=== PATIENT | male | born 1985 | race Caucasian/White ===

== ENCOUNTER 2021-08-02 10:09 | Outpatient (REF) | payer OTHER, SELFPAY ==
[2021-08-02 11:17] LABS: COVID-19 Test Negative (Negative)
== END 2021-08-02 10:10 | disposition home or self-care (01) ==
LOC: HO.LAB 10:09
PROVIDERS: Visit Provider Internal Medicine
DX: Z20.822 Contact with and (suspected) exposure to COVID-19 (principal)
CPT/HCPCS: 87635; C9803

== ENCOUNTER 2022-08-20 16:44 | Emergency (ER) | payer OTHER, SELFPAY ==
[2022-08-20 17:14] VITALS: BP 137/96; PULSE 110; RESP 20; TEMP 36.8; O2SAT 98; BMI 34.8
--- NOTE | 2022-08-20 17:30 | ED_ITS ---
HPI - General Adult General Chief complaint: General Medical Stated complaint: shoulder neck pain Time Seen by Provider: 08/20/22 17:29 Source: patient Mode of arrival: ambulatory Limitations: no limitations History of Present Illness HPI narrative: 37 yo male healthy here with atraumatic neck pain since Saturday. Now pain radiating to back and left shoulder. No known injury or trauma. No weakness, numbness, tingling of the UE. NO fever,s chills. 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 over a work station Related Data Previous Rx's Medication Instructions Recorded cyclobenzaprine 10 mg tablet 10 mg PO TID PRN muscle spasm #15 08/20/22 tabs naproxen 500 mg tablet 500 mg PO BID PRN pain #30 tabs 08/20/22 prednisone 20 mg tablet 40 mg PO DAILY #10 tabs 08/20/22 Allergies Allergy/AdvReac Type Severity Reaction Status Date / Time ENVIRONMENTAL Allergy Unknown RESP Uncoded 04/07/20 15:44 SYMPTOMS SEASONAL ALLERGIES Allergy Unknown RESP Uncoded 04/07/20 15:44 SYMPTOMS Review of Systems Review of Systems: Yes all other systems are reviewed and are negative Constitutional: Constitutional: Reports no additional constitutional complaints, Denies body ache(s), Denies chills, Denies fever(s), Denies headache(s) and Denies weakness Eyes: Eyes: Reports no additional eye complaints and Denies change in vision ENT: Reports system reviewed and no additional complaints, except as documented, Denies dizziness, Denies headache(s), Denies nasal congestion, Denies nasal discharge and Reports neck pain Cardiovascular: Cardiovascular: Reports no additional cardiovascular complaints, Denies chest pain, Denies leg edema and Denies dyspnea Respiratory: Respiratory: Reports no additional respiratory complaints, Denies cough and Denies dyspnea Gastrointestinal: Gastrointestinal: Reports no additional gastrointestinal complaints, Denies abdominal pain, Denies diarrhea, Denies nausea and Denies vomiting Genitourinary: Genitourinary: Denies urinary incontinence Musculoskeletal: Musculoskeletal: Reports no additional musculoskeletal complaints, Reports back pain, Denies arthralgias, Denies joint swelling, Reports neck pain, Denies numbness, Reports radiating pain into limb and Denies tingling Integumentary/Breasts: Skin/Breast: Reports system reviewed and no additional complaints, except as docu and Denies rash Neurologic: Reports system reviewed and no additional complaints, except as documented, Denies dizziness, Denies headache(s), Denies numbness, Denies tingling and Denies weakness PMFSH Past Medical History Attestation statement: The following information was validated with the patient. Source: old records reviewed and nursing notes reviewed Social History Social History Advance Directives: No Advance Directives Information Provided: No Physical Exam ED Vital Signs: Vital Signs - 24 hr 08/20/22 17:14 Temperature 98.3 F Pulse Rate 110 H Respiratory Rate 20 Blood Pressure 137/96 H Pulse Oximetry 98 Oxygen Delivery Method Room Air BMI result Body Mass Index 34.8 Const General: cooperative, healthy appearing, comfortable and no acute distress Orientation/consciousness: patient oriented x3 Limitations: no limitations HENMT Head: Yes normal to inspection Ears: hearing grossly normal bilaterally Eyes General: appearance normal, both eyes and all related structures Pupils: Equal, round and reactive pupils present Neck Other: Positive Spurling's test-pain with compression Pain is relieved with shoulder abduction No midline tenderness, step-offs or deformities Full range of motion Neck: Yes normal visual inspection, Yes no lymphadenopathy and Yes no meningeal signs Chest Chest palpation & inspection: normal inspection of the chest Resp Effort & Inspection: normal respiratory effort Auscultation: clear to auscultation bilaterally Cardio Rate: regular rate Rhythm: regular rhythm Peripheral pulses: Peripheral pulses 2+ throughout GI Inspection: Yes normal to inspection Palpation (GI): Soft to palpation and nontender General: Yes no CVA tenderness Back/Spine/Pelvis Back: no CVA tenderness Thoracic/Lumbar Spine: thoracic and lumbar spine normal to inspection Skin General skin exam: no rashes or lesions noted Neuro General: patient oriented x3, moves all extremities and no meningeal signs Cranial nerves: Yes CN's II-XII intact bilaterally, Yes Equal, round and reactive pupils present, Yes Bilaterally intact EOM present, Yes Nystagmus not present, Yes Normal facial strength present and Yes Midline tongue present Cognition (Neuro): normal cognition Gait exam (Neuro): Normal gait present Motor exam (neuro): 5/5 motor strength present throughout Sensory Exam: Normal double simultaneous stimulation for sensation Deep tendon reflexes (DTR's): Right triceps reflex intensity grade: 2+, Left tri ceps reflex intensity grade: 2+, Rt Biceps (C5, C6): 2+, Left biceps reflex intensity grade: 2+, Right brachioradialis reflex intensity grade: 2+ and Left brachioradialis reflex intensity grade: 2+ Medical Decision Making Medical Decision Making MDM Narrative: 37-year-old male here with atraumatic neck pain for a week now with radiation of pain into the shoulder and into the back with + Spurling's test and improvement in pain with shoulder abduction most consistent with cervical radiculopathy. No red flag symptoms or neurological deficits. No history of trauma to suggest imaging. Patient will be given prednisone, muscle relaxants and NSAIDs with recommendations to follow-up with primary care outpatient Differential Diagnosis Differential Diagnoses: The differential diagnosis associated with the presentation includes cervical radiclopathy Low concern for epidural abscess with no history of IV drug abuse, immunocompromised state, HIV, fever or neurological findings Low concern for cord compression with normal neurological exam Low concern for fracture with no reports of trauma Discharge Plan Discharge Clinical Impression: Cervical radiculopathy Patient Disposition: Home, Self-Care Instructions: Cervical Radiculopathy (ED) Additional Instructions: Heat to the area, gentle stretching Establish a PCP Prescriptions: New cyclobenzaprine 10 mg tablet 10 mg PO TID PRN (Reason: muscle spasm) Qty: 15 0RF prednisone 20 mg tablet 40 mg PO DAILY Qty: 10 0RF naproxen 500 mg tablet 500 mg PO BID PRN (Reason: pain) Qty: 30 0RF Referrals: Physician,Unknown J [Primary Care Provider] - Stand Alone Forms: Work/School Release Interventions: ED Discharge Assessment Last Done: 08/20/22 17:38
--- NOTE | 2022-08-20 17:32 | PC.NURSE ---
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 plan for dc
== END 2022-08-20 17:41 | disposition home or self-care (01) ==
LOC: HO.ED 17:39
PROVIDERS: Emergency Provider Emergency Medicine Emergency Medical Services
DX: M54.12 Radiculopathy, cervical region (principal); Z79.899 Other long term (current) drug therapy
CPT/HCPCS: 99282; 99283

== ENCOUNTER 2024-05-12 05:48 | Emergency (ER) | payer OTHER, SELFPAY ==
--- NOTE | ~2024-05-12 | XR_ITS ---
EXAMINATION: XR CHEST 2 VIEW CLINICAL INFORMATION: Left upper back pain COMPARISON: 11/10/2019 TECHNIQUE: PA and lateral views of the chest obtained. FINDINGS: The lungs are clear. There are no pleural effusions. The cardiomediastinal silhouette is normal. XR/XR chest 2V IMPRESSION: No acute cardiopulmonary disease. Electronically signed by: Imtiaz Cox MD 05/12/2024 09:33 AM EDT
[2024-05-12 06:04] VITALS: BP 133/86; PULSE 89; RESP 22; TEMP 36.6; O2SAT 95; BMI 41.8
[2024-05-12 06:49] VITALS: BP 134/98; PULSE 92; RESP 12; TEMP 36.8; O2SAT 94
--- NOTE | 2024-05-12 07:21 | ED.BACK ---
HPI - Back Pain/Injury General Chief Complaint: Back Pain/Injury Stated Complaint: back pain Time Seen by Provider: 05/12/24 07:20 Source: patient Mode of arrival: ambulatory Limitations: no limitations History of Present Illness ED Provider: Dioni Robins PA-C HPI Narrative: 38 y/o male with history of morbid obesity, history of cervical radiculopathy in the past who presents to the ER for evaluation of left upper back pain that radiates occasionally down his left arm to his pinky finger for the last 5-6 days. He states the pain is worse with movement of his head and LUE. He does repetitive movements and some lifting with his job. He denies associated headache, LUE weakness . He has been coughing a lot and has post nasal drip. cough worse when laying down. coughing hurts his upper back MD elicited complaint: back pain Pertinent past history: prior back pain Onset (ago): day(s) Timing: intermittent Severity: moderate Similar Symptoms Previously: Yes Quality: sharp Location: left upper back Radiation: other (LUE) Exacerbating factors: movement Relieving factors: medication Associated symptoms: denies other symptoms Related Data Previous Rx's ?Medication ?Instructions ?Recorded cyclobenzaprine 10 mg tablet 10 mg PO TID PRN muscle spasm #15 08/20/22 tabs naproxen 500 mg tablet 500 mg PO BID PRN pain #30 tabs 08/20/22 prednisone 20 mg tablet 40 mg (2 x 20 mg) PO DAILY #10 tabs 08/20/22 cyclobenzaprine 10 mg tablet 10 mg PO TID PRN muscle spasm #10 05/12/24 tabs lidocaine 5 % topical patch 1 patch topical DAILY #15 ea 05/12/24 naproxen 500 mg tablet 500 mg PO BID PRN pain #20 tabs 05/12/24 Allergies Allergy/AdvReac Type Severity Reaction Status Date / Time ENVIRONMENTAL Allergy Unknown RESP Uncoded 05/12/24 06:08 SYMPTOMS SEASONAL ALLERGIES Allergy Unknown RESP Uncoded 05/12/24 06:08 SYMPTOMS Review of Systems Review of Systems: Yes all other systems are reviewed and are negative [facility] Social History Social History Smoked in Last 30 Days: No Use of substances other than those prescribed or required for medical reasons: No Advance Directives: No Advance Directives Information Provided: Yes Do you have a plan to hurt others: No Plan Physical Exam Vital Signs: Vital Signs: Last Vital Signs Temp 98.2 F 05/12/24 06:49 Pulse 81 05/12/24 07:53 Resp 20 05/12/24 07:53 BP 121/81 05/12/24 07:53 Pulse Ox 97 05/12/24 07:53 O2 Del Method Room Air 05/12/24 07:53 BMI result Body Mass Index 41.8 Appearance: Alert. Oriented X3. No acute distress. Head: normocephalic, atraumatic. Eyes: Pupils equal, round and reactive to light. ENT: Pharynx normal. No tonsillar swelling or exudate. Neck: Normal inspection. Neck supple. No midline tenderness. pain with flexion Back: normal inspection. soft tissue tenderness medial to the left scapula w/ palpable muscle spasm. CVS: Normal heart rate and rhythm. Pulses normal. Respiratory: No respiratory distress. Breath sounds normal. Abdomen: Obese, Soft and nontender. +BS x4 Skin: Skin warm and dry. Normal skin color. Normal skin turgor. No rashes. Extremities: No lower extremity edema. No joint swelling. Neuro/psych: Oriented X 3. No motor deficit. No sensory deficit. Strength is equal and symmetrical throughout CN II-XII intact. Normal speech and cognition. Medications Administered Discontinued Medications Generic Name Dose Route Start Last Admin Trade Name Freq PRN Reason Stop Dose Admin Ketorolac Tromethamine 30 mg 05/12/24 07:26 05/12/24 07:53 Ketorolac Tromethamine 30 Mg/Ml Vial IM 05/12/24 07:27 30 mg ONCE ONE Administration Medical Decision Making Medical Decision Making MDM Narrative: 38-year-old male with history of cervical radiculopathy, morbid obesity presents to the ER for evaluation of left upper back pain that radiates down his left arm. Pain is similar to when he had cervical radiculopathy of 1 year ago. He states he was treated with anti-inflammatories and muscle relaxers with improvement at the time. He was never able to follow up with his PCP for further evaluation and treatment. Reports symptoms worsened a few days ago after doing repetitive movements at work. He also has been coughing a lot and having postnasal drip. Chest x-ray today does not show any evidence of pneumonia. No trauma, no need for cervical spinal imaging today. His exam is most consistent with muscular strain and spasm, possible radiculopathy with intermittent pains on the left arm. Will treat with anti-inflammatories, muscle relaxers, Lidoderm. Activity modification. Encouraged outpatient follow-up with PCP as a recurring issue for him, he may benefit from physical therapy. We discussed other supportive care measures such as rest, ice, heat, massage. Stable for discharge home with outpatient follow-up and supportive care. Differential Diagnosis Differential Diagnoses: The differential diagnosis associated with the presentation includes Cervical radiculopathy, muscle strain, spasm, pneumonia Independent Interpretation I performed an independent interpretation of an: Plain X-Ray Interpretation: No evidence of left upper lobe infiltrate, no acute abnormality Radiology Impression Discussion of test interpretation with radiology: I have reviewed the radiologist's reading. External Record Review External record reviewed: Prior outpatient labs Tests considered The following testing was considered but not selected: Cervical spinal x-ray or cervical spinal CT scan was considered however no trauma, no emergent need for this imaging to be done today Prescription Management I considered prescription management with: Pain Medication Chronic Conditions Patient?s care impacted by: Other (Obesity, history of cervical radiculopathy) Critical Care Time Critical Care Time Critical Care Time: No Discharge Plan Discharge Clinical Impression: Cervical radiculopathy Patient Disposition: Home, Self-Care Instructions: Cervical Radiculopathy (ED) Additional Instructions: Your x-ray today was normal Use ice several times per day for 20 minutes at a time for the next 48 hours and then change to heat. Take medications as prescribed to help with pain and discomfort. Take the prescribed medications as directed Follow up with your doctor If you develop new or worsening symptoms call 911 or come back to the ER for further evaluation. Prescriptions: New cyclobenzaprine 10 mg tablet 10 mg PO TID PRN (Reason: muscle spasm) Qty: 10 0RF lidocaine 5 % adhesive patch,medicated 1 patch topical DAILY Qty: 15 0RF Rx Instructions: leave on most painful area for up to 12 hrs naproxen 500 mg tablet 500 mg PO BID PRN (Reason: pain) Qty: 20 0RF No Action cyclobenzaprine 10 mg tablet 10 mg PO TID PRN (Reason: muscle spasm) Qty: 15 0RF prednisone 20 mg tablet 40 mg PO DAILY Qty: 10 0RF naproxen 500 mg tablet 500 mg PO BID PRN (Reason: pain) Qty: 30 0RF Stand Alone Forms: Work/School Release Interventions: ED Discharge Assessment Last Done: 05/12/24 10:05 Print Language: Maltese
[2024-05-12 07:53] VITALS: BP 121/81; PULSE 81; RESP 20; O2SAT 97
[2024-05-12] MEDS: Ketorolac Tromethamine 30 MG/ML VIAL IM (07:53)
--- NOTE | 2024-05-12 08:02 | PC.NURSE ---
Pt to radiology at this time.
[2024-05-12 10:05] VITALS: BP 121/81; PULSE 81; RESP 20; TEMP 36.8; O2SAT 97
== END 2024-05-12 10:05 | disposition home or self-care (01) ==
PROVIDERS: Emergency Provider Emergency Medicine
DX: M54.12 Radiculopathy, cervical region (principal); M54.6 Pain in thoracic spine; M54.2 Cervicalgia; R05.9 Cough, unspecified
CPT/HCPCS: 71046; 96372; 99284; J1885